=== PATIENT | male | born 1975 | race Caucasian/White ===

== ENCOUNTER 2016-11-25 09:45 | Outpatient (CLI) | payer BC, SELFPAY ==
[2016-11-25 16:20] LABS: ALT (SGPT) 132 U/L (0-55); AST (SGOT) 122 U/L (5-34); Albumin 4.8 g/dL (3.5-5.0); Alkaline Phosphatase 99 U/L (40-150); Anion Gap 23 mmol/L (10-20); BUN (Urea Nitrogen) 6 mg/dL (8.9-20.6); Bilirubin, Total 0.2 mg/dL (0.2-1.2); Calc. Creatinine Clearance 0 mL/min (70-130); Calcium 9.2 mg/dL (7.8-10.44); Carbon Dioxide 18 mmol/L (22-29); Cardiac Risk 5.4 (Less than 4.5); Chloride 109 mmol/L (98-107); Cholesterol 210 mg/dL (< 200 Desired); Estimated GFR-MDRD Greater than 90; Globulin 3.4 g/dL (2.4-3.5); Glucose 116 mg/dL (70-105); HDL Cholesterol 39 mg/dL (>60 Neg Risk); LDL Cholesterol, Calculated 125 mg/dL; Protein, Total 8.2 g/dL (6.0-8.3); Sodium 146 mmol/L (136-145); Triglycerides 228 mg/dL (Less than 150)
[2016-11-25 22:10] LABS: Eosinophils 5 % (0-10); Hemoglobin 15.1 g/dL (14.0-18.0); Lymphocytes 40 % (21-51); MDiff Complete? YES; Mean Corpuscular HGB CONC 32.2 g/dL (32.0-36.0); Mean Corpuscular Hemoglobin 29.5 pg (27.0-31.0); Mean Corpuscular Volume 91.7 fl (80.0-94.0); Mean Platelet Volume 5.7 fL (7.4-10.4); Monocytes 10 % (0-10); Neutrophil 44 % (42-75); PLT Morphology Comment Appears Adequate; Platelet Count 315 thou/uL (130-400); RBC Distribution Width 14.8 % (11.5-14.5); RBC Morphology Normal; Red Blood Cell (RBC) Count 5.13 mill/uL (4.70-6.10); White Blood Cell (WBC) Count 6.5 thou/uL (4.8-10.8)
== END 2016-11-25 09:46 | disposition home or self-care (01) ==
LOC: LABLEX 09:45
PROVIDERS: ATTEND Family Medicine
DX: R63.4 Abnormal weight loss (principal); G47.00 Insomnia, unspecified; G47.33 Obstructive sleep apnea (adult) (pediatric); I10 Essential (primary) hypertension
CPT/HCPCS: 80053; 80061; 84443; 85025

== ENCOUNTER 2017-09-11 23:43 | Emergency (ER) | payer BC ==
[2017-09-12] MEDS ORDERED: Fentanyl 100 MCG/2 ML VIAL ONE ×2 (00:20→01:30)
[2017-09-12] MEDS ORDERED: Ondansetron HCl/PF 4 MG/2 ML Vial ONE (00:20)
[2017-09-12 00:50] LABS: ALT (SGPT) 53 U/L (8-55); AST (SGOT) 29 U/L (5-34); Albumin 4.5 g/dL (3.5-5.0); Alkaline Phosphatase 133 U/L (40-150); Anion Gap 25 mmol/L (10-20); BUN (Urea Nitrogen) 7 mg/dL (8.9-20.6); Bilirubin, Total 0.8 mg/dL (0.2-1.2); Calc. Creatinine Clearance 0 mL/min (70-130); Carbon Dioxide 24 mmol/L (22-29); Chloride 94 mmol/L (98-107); Estimated GFR-MDRD 86; Globulin 3.9 g/dL (2.4-3.5); Glucose 198 mg/dL (70-105); Lipase 793 U/L (8-78); Potassium 3.4 mmol/L (3.5-5.1); Protein, Total 8.4 g/dL (6.0-8.3); Sodium 140 mmol/L (136-145)
[2017-09-12 00:58] LABS: Band 15 % (5-11); Hemoglobin 16.4 g/dL (14.0-18.0); Lymphocytes 5 % (21-51); MDiff Complete? YES; Mean Corpuscular HGB CONC 33.5 g/dL (32.0-36.0); Mean Corpuscular Volume 86.6 fl (80.0-94.0); Mean Platelet Volume 5.7 fL (7.4-10.4); Monocytes 5 % (0-10); Neutrophil 75 % (42-75); PLT Morphology Comment Appears Adequate; Platelet Count 341 thou/uL (130-400); RBC Distribution Width 13.3 % (11.5-14.5); RBC Morphology Normal; Red Blood Cell (RBC) Count 5.65 mill/uL (4.70-6.10); Small Platelets SLIGHT; White Blood Cell (WBC) Count 23.8 thou/uL (4.8-10.8)
--- NOTE | 2017-09-12 09:39 | CT ---
PRELIMINARY REPORT/[facility]/EMERGENCY AFTER HOURS PROCEDURE: EXAM: CT Abdomen and Pelvis With Intravenous Contrast EXAM DATE/TIME: Exam ordered 09/12/2017 12:40 AM CLINICAL HISTORY: 41 years old, male; Pain; Abdominal pain; Generalized; Patient HX: Abd pain x 1 day, HX of pancreatit is TECHNIQUE: Axial computed tomography images of the abdomen and pelvis with intravenous contrast. COMPARISON: No relevant prior studies available. FINDINGS: Lower thorax: No acute findings. ABDOMEN: Liver: Hepatic steatosis. Gallbladder and bile ducts: No biliary ductal dilatation or choledocholithiasis. Normal gallbladder. Pancreas: Extensive diffuse peripancreatic inflammation and fluid consistent with acute pancreatitis. No ductal dilation. Spleen: Unremarkable. No splenomegaly. Adrenals: Unremarkable. No mass. Kidneys and ureters: Unremarkable. No solid mass. No hydronephrosis. Stomach and bowel: Unremarkable. No obstruction. No mucosal thickening. Appendix: Normal appendix. PELVIS: Bladder: Unremarkable. No mass. Reproductive: Unremarkable as visualized. ABDOMEN and PELVIS: Intraperitoneal space: Unremarkable. No free air. No significant fluid collection. Bones/joints: No acute fracture. No dislocation. Soft tissues: Bilateral fat containing inguinal hernias. Vasculature: Unremarkable. No abdominal aortic aneurysm. Lymph nodes: Unremarkable. No enlarged lymph nodes. IMPRESSION: Acute pancreatitis. Thank you for allowing us to participate in the care of your patient. Dictated and Authenticated by: Kory Sandoval MD 09/12/2017 1:06 AM Central Time ([place] & [place]) FINAL REPORT CT ABDOMEN AND PELVIS WITH CONTRAST: Date: 09/12/[address] of the abdomen and pelvis was performed for evaluation of generalized abdominal pain. Axial slices were acquired after giving IV contrast. Oral contrast was deferred by request. FINDINGS: The lung bases show some dependent atelectasis and there may be a tiny amount of pleural fluid on the left. The liver is mildly enlarged and diffusely low density consistent with diffuse fatty infiltrat ion. The major finding on this study is prominent. Pancreatic inflammatory changes consistent with ac sourav pancreatitis. I do not see any pancreatic cysts at this time or abscess. The spleen is normal in size. The gallbladder, adrenal glands, kidneys, and abdominal aorta are unremarkable. None show acute changes. CT of the pelvis shows no pelvic masses, fluid collections, or inflammatory changes. The bowel shows no sign of obstruction. There is no bowel wall thickening. No free air seen. Incident ally noted were minimal bilateral fat-filled inguinal hernias. IMPRESSION: 1. Acute pancreatitis. 2. Diffuse fatty infiltration of the liver with mild hepatic enlargement. Report in agreement with preliminary reading by Koffi. POS: HOME
== END 2017-09-12 02:11 | disposition short-term general hospital (02) ==
LOC: EDBD 23:43 → BURERS 23:43
DX: K85.90 Acute pancreatitis without necrosis or infection, unspecified (principal); I10 Essential (primary) hypertension; Z79.899 Other long term (current) drug therapy
CPT/HCPCS: 74177; 80053; 83690; 84478; 85025; 96361; 96374; 96375; 96376; J2405; J3010

== ENCOUNTER 2022-05-13 12:10 | Emergency (ER) | payer BC ==
[2022-05-13 12:36] LABS: #Basophils 0.1 thou/uL (0.0-0.2); #Eosinphils 0.4 thou/uL (0.0-0.7); #Lymphocytes 2.1 thou/uL (1.20-3.40); #Monocytes 0.5 thou/uL (0.11-0.59); #Neutrophils 10.8 thou/uL (1.40-6.50); %Basophils 1.1 % (0.0-1.0); %Eosinophils 2.8 % (0.0-10.0); %Lymphocytes 15.3 % (21.0-51.0); %Monocytes 3.9 % (0.0-10.0); %Neutrophils 77.1 % (42.0-75.0); Hemoglobin 15.6 g/dL (14.0-18.0); Mean Corpuscular HGB CONC 33.6 g/dL (32.0-36.0); Mean Corpuscular Hemoglobin 29.3 pg (27.0-31.0); Mean Corpuscular Volume 87.3 fL (78.0-98.0); Mean Platelet Volume 7.1 fL (7.4-10.4); Platelet Count 246 thou/uL (130-400); RBC Distribution Width 11.5 % (11.5-14.5); Red Blood Cell (RBC) Count 5.31 mill/uL (4.70-6.10)
[2022-05-13 12:54] LABS: ALT (SGPT) 23 U/L (8-55); AST (SGOT) 18 U/L (5-34); Albumin 4.5 g/dL (3.5-5.0); Alkaline Phosphatase 97 U/L (40-110); Anion Gap 17 mmol/L (10-20); BUN (Urea Nitrogen) 16 mg/dL (8.9-20.6); Bilirubin, Total 0.3 mg/dL (0.2-1.2); Calc. Creatinine Clearance 0 mL/min (70-130); Calcium 9.5 mg/dL (7.8-10.44); Carbon Dioxide 25 mmol/L (22-29); Chloride 104 mmol/L (98-107); Estimated GFR 110; Globulin 3.2 g/dL (2.4-3.5); Glucose 169 mg/dL (70-105); Potassium 4.3 mmol/L (3.5-5.1); Protein, Total 7.7 g/dL (6.0-8.3); Sodium 142 mmol/L (136-145)
[2022-05-13] MEDS ORDERED: Lorazepam 0.5 MG TAB ONE (13:40)
== END 2022-05-13 13:59 | disposition home or self-care (01) ==
LOC: BURERS 12:10
DX: R00.2 Palpitations (principal); F41.9 Anxiety disorder, unspecified; I10 Essential (primary) hypertension; E11.9 Type 2 diabetes mellitus without complications; E78.5 Hyperlipidemia, unspecified; F17.210 Nicotine dependence, cigarettes, uncomplicated; Z79.84 Long term (current) use of oral hypoglycemic drugs; Z79.899 Other long term (current) drug therapy
CPT/HCPCS: 36415; 71045; 80053; 83880; 84484; 85025; 93005